=== PATIENT | female | born 1960 | race Caucasian/White ===

== ENCOUNTER → 2019-11-13 09:25 | Outpatient (BNVA) | payer OTHER, SELFPAY | PROVIDERS: Family Provider Nurse Practitioner Family; PCP Nurse Practitioner Family; Visit Provider Nurse Practitioner Family | DX: E11.9 Type 2 diabetes mellitus without complications (principal); R68.89 Other general symptoms and signs | CPT/HCPCS: 80053; 85025; 87804 ==

== ENCOUNTER → 2019-11-15 10:14 | Outpatient (BNVA) | payer OTHER, SELFPAY | PROVIDERS: Family Provider Nurse Practitioner Family; PCP Nurse Practitioner Family; Visit Provider Nurse Practitioner Family | DX: E11.9 Type 2 diabetes mellitus without complications (principal); R74.8 Abnormal levels of other serum enzymes | CPT/HCPCS: 81003; 86705; 86706; 86709; 86803; 87340 ==

== ENCOUNTER → 2020-01-26 11:10 | Outpatient (BNVA) | payer OTHER, SELFPAY | PROVIDERS: Family Provider Nurse Practitioner Family; PCP Nurse Practitioner Family; Visit Provider Nurse Practitioner Family | DX: E11.9 Type 2 diabetes mellitus without complications (principal) | CPT/HCPCS: 80053; 80061; 83036 ==

== ENCOUNTER 2020-03-11 09:11 | Emergency (ER) | payer OTHER, SELFPAY ==
[2020-03-11 09:14] VITALS: BP 218/115; PULSE 99; RESP 16; TEMP 36.6; O2SAT 98; BMI 42.0
--- NOTE | 2020-03-11 09:16 | ED_ITS ---
HPI - General Adult General: Chief complaint: General Medical Stated complaint: ELEVATED BP Time Seen by Provider: 03/11/20 09:15 History of Present Illness: HPI narrative: 59-year-old female comes in with elevated blood pressures. She is on lisinopril and metoprolol she took the metoprolol while at night. She did take lisinopril this morning she denies any visual or speech problems or any swallowing difficulties she does not have a headache she denies any chest pain or shortness of breath just generally does not feel well no recent cough cold symptoms no fever. She states she had a flulike illness in November of this year but recovered from that since then she has had a little persistent cough but is nonproductive. Onset (ago): day(s) Severity: moderate Relieving factors: none Exacerbating factors: none Associated symptoms: Reports no associated symptoms; Deny chest pain, confusion, diaphoresis, decreased appetite, dyspnea, fevers/chills, headache(s), malaise, nausea, rash, palpitations, seizures, short of breath, syncope, vomiting, weakness or other Review of Systems Const: Denies: malaise or diaphoresis ENMT: Denies: throat pain, ear pain, nasal discharge or nasal congestion Card: Denies: chest pain, palpitations or syncope Resp: Denies: shortness of breath GI: Denies: nausea or vomiting : Denies: flank pain, difficulty urinating, painful urination, urinary frequency or urinary urgency Skin/Breast: Denies: rash Neuro: Denies: headache or confusion PFS ED PFSH: Medical History (Updated 03/11/20 @ 11:28 by Ronald Connelly DO) Diabetes mellitus Frenulum linguae Hypertension Nephrolithiasis Surgical History (Updated 03/11/20 @ 11:27 by Ronald Connelly DO) H/O lithotripsy S/P tonsillectomy and adenoidectomy Social History Smoking and tobacco status: never smoked Physical Exam Const: COMMON NORMALS: no apparent distress GENERAL APPEARANCE: cooperative and comfortable ORIENTATION/CONSCIOUSNESS: Yes awake, Yes oriented to person, Yes oriented to place and Yes oriented to time HENMT: COMMON NORMALS: normocephalic, head/scalp atraumatic, hearing grossly normal bilaterally, external ears normal, EAC's normal, TM's normal bilaterally, nasal mucous membranes and turbinates normal, moist oral mucous membranes and oropharynx normal HEAD & SCALP: normocephalic and atraumatic NOSE: nasal mucous membranes and turbinates normal EXTERNAL EAR: Yes external ears normal EXTERNAL AUDITORY CANAL: EAC's normal TYMPANIC MEMBRANE: TM's normal bilaterally Eye: COMMON NORMALS: PERRL, EOMs intact bilaterally, conjunctivae normal and no scleral icterus CONJUNCTIVA: Yes conjunctivae normal PUPIL: Yes PERRL Neck/C-Spine: COMMON NORMALS: full ROM, no lymphadenopathy, supple and no JVD Lymph: LYMPHATIC: no lymphadenopathy noted and no lymphedema noted Resp: COMMON NORMALS: normal respiratory effort, no retractions, no use of accessory muscles and clear to auscultation bilaterally AUSCULTATION: clear to auscultation bilaterally Cardio: COMMON NORMALS: no JVD, regular rate, regular rhythm and no murmurs RATE: regular rate RHYTHM: regular rhythm GI: COMMON NORMALS: soft to palpation and no hepatosplenomegaly AUSCULTATION: Yes normoactive bowel sounds PALPATION: Yes soft, No tender, No guarding and Yes no hepatosplenomegaly Extremity: COMMON NORMALS: normal to inspection, normal capillary refill, no clubbing, cyanosis or edema, no calf tenderness and no pedal edema Neuro: SENSORIUM/ORIENTATION: Yes oriented to person, Yes oriented to place and Yes oriented to time Skin: COMMON NORMALS: no rashes or lesions noted GENERAL SKIN EXAM: no rashes or lesions noted Course Vital Signs: Vital signs: Vital Signs Temperature 97.9 F 03/11/20 09:14 Pulse Rate 78 03/11/20 11:55 Respiratory Rate 16 03/11/20 11:55 Blood Pressure 157/108 03/11/20 11:55 Pulse Oximetry 97 03/11/20 11:55 MDM - General Adult MDM Narrative: Medical decision making narrative: Blood pressure improved she has no symptoms at this time no chest pain no shortness of breath. She is not completely back to normal tensive but I discussed that I do not think that would be a goal at this point. We will go ahead and discharge her home increase her lisinopril to 10 mg daily we will also add amlodipine 10 mg daily and encouraged her to take metoprolol succinate 50 mg daily we did give her metoprolol succinate dose here in the emergency room return if has any problems checkup with her primary care doctor within 3 days for review blood pressure Lab Data: Labs: Lab Results 03/11/20 03/11/20 Range/Units 09:25 09:25 WBC 3.9 L (4.0-10.0) 10^3/ uL RBC 4.57 (4.1-5.3) 10^6/u L Hgb 14.1 (11.5-15.3) g/dL Hct 42.5 (37.0-47.0) % MCV 93.0 (81-99) fL MCH 30.9 (28.0-34.0) pg MCHC 33.2 (30.0-36.0) g/dL RDW 12.1 (12.1-15.1) % Plt Count 204 (130-400) 10^3/c mm MPV 10.9 H (7.4-10.4) fL Neut % (Auto) 67.4 % Lymph % (Auto) 23.9 % [place] % (Auto) 6.3 % Eos % (Auto) 1.3 % Baso % (Auto) 0.8 % Neut # (Auto) 2.7 (1.8-7.7) 10^3/u L Lymph # (Auto) 0.9 (0.8-4.8) 10^3/u L [place] # (Auto) 0.3 (0.2-0.9) 10^3/u L Eos # (Auto) 0.1 (0.0-0.8) 10^3/u L Baso # (Auto) 0.0 (0.0-0.1) 10^3/u L Nucleated RBC % (a uto) 0 % Nucleated RBCs # 0.0 /100WBC Sodium 142 (136-145) mmol/L Potassium 4.0 (3.5-5.1) mmol/L Chloride 105 (98-107) mmol/L Carbon Dioxide 24 (22-29) mmol/L Anion Gap 17.0 (5-19) BUN 11 (6-20) mg/dL Creatinine 0.9 (0.5-0.9) mg/dL GFR Calculation 64.5 L (90-130) mL/min Glucose 126 H (65-115) mg/dL Calculated Osmolal ity 292 (285-295) mOsm/k g Calcium 10.0 (8.5-10.5) mg/dL Total Bilirubin 0.4 (0.15-1.2) mg/dL AST 23 (0-32) U/L ALT 24 (0-33) U/L Alkaline Phosphata se 66 (35-105) IU/L Total Protein 7.4 (6.6-8.7) g/dL Albumin 4.4 (3.5-5.2) g/dL Globulin 3.0 (1.3-4.6) g/dL Discharge Plan Discharge Patient Disposition: Home, Self-Care Clinical Impression: Hypertension Condition: Stable Prescriptions: New amlodipine 10 mg tablet 10 mg PO DAILY Qty: 14 RF: 0 Discontinued lisinopril 5 mg Tablet 5 mg PO DAILY RF: 0 No Action lisinopril 5 mg tablet 10 mg PO DAILY Qty: 30 RF: 0 metoprolol succinate 50 mg Tablet Extended Release 24 Hr 50 mg PO DAILY RF: 0 Pristiq 100 mg Tablet Extended Release 24 Hr 100 mg PO DAILY RF: 0 Ozempic 0.25 mg or 0.5 mg(2 mg/1.5 mL) Pen Injector 0.25 mg SUBCUT Q7D RF: 0 Discharge Orders: Discharge Order (Routine); Ordered 03/11/20 Ordered By: Ronald Connelly Referrals: Esthela Gleason FNP-C [Primary Care Provider] - Discharge Diet: Advance as tolerated Discharge Activity: Resume usual activity Activity Restrictions/Additional Instructions: Follow-up to recheck your blood pressure with your primary care doctor in the next 3 days Discharge Date/Time: 03/11/20 11:57 Coding Level of Care Code 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
--- NOTE | 2020-03-11 09:29 | ECG_ITS ---
Measurements Intervals [place] Rate: 72 P: 49 HI: 179 QRS: -32 QRSD: 86 T: 27 QT: 370 QTc: 407 SINUS RHYTHM POSSIBLE LEFT ATRIAL ENLARGEMENT [-0.1mV P WAVE IN V1/V2] LEFT AXIS DEVIATION [QRS AXIS < -30] LOW QRS VOLTAGE IN PRECORDIAL LEADS [QRS DEFLECTION < 1.0 mV IN CHEST LEADS] POSSIBLE LEFT VENTRICULAR HYPERTROPHY [VOLTAGE CRITERIA PLUS LAE OR QRS WIDENING] POSSIBLE ANTERIOR MYOCARDIAL INFARCTION , PROBABLY OLD [30 ms Q WAVE IN V3/V4, OR R < 0.2 mV IN V4] Compared to ECG 02/09/2019 11:44:13 Left-axis deviation now present Low QRS voltage now present Myocardial infarct finding now present Electronically Signed On 03-11-2020 18:45:00 CDT by Antonio Blevins M.D. [id number]
--- NOTE | 2020-03-11 09:29 | XR_ITS ---
WS: [id number] PORTABLE CHEST HISTORY: dyspnea/cough COMPARISON: 01/26/2018 Lungs are clear and well expanded. No pleural effusion or pneumothorax. Cardiac size: Normal. Mediastinum/Aorta: Normal mediastinum. No osseous abnormality seen. XR/XR chest 1V portable [id number] IMPRESSION: Unremarkable portable chest.
[2020-03-11 10:08] VITALS: BP 173/110; PULSE 87; RESP 16; O2SAT 98
[2020-03-11 10:09] LABS: Basophils % 0.8 %; Eosinophils # 0.1 10^3/uL (0.0-0.8); Eosinophils % 1.3 %; Hematocrit 42.5 % (37.0-47.0); Hemoglobin 14.1 g/dL (11.5-15.3); Lymphocytes # 0.9 10^3/uL (0.8-4.8); Lymphocytes % 23.9 %; Mean Corpuscular HGB Conc 33.2 g/dL (30.0-36.0); Mean Corpuscular Hemoglobin 30.9 pg (28.0-34.0); Mean Platelet Volume 10.9 fL (7.4-10.4); Monocytes # 0.3 10^3/uL (0.2-0.9); Monocytes % 6.3 %; Neutrophils # 2.7 10^3/uL (1.8-7.7); Neutrophils % 67.4 %; Nucleated Red Blood Cells % 0 %; Platelet Count 204 10^3/cmm (130-400); Red Blood Count 4.57 10^6/uL (4.1-5.3); Red Cell Distribution Width 12.1 % (12.1-15.1); White Blood Count 3.9 10^3/uL (4.0-10.0)
[2020-03-11 10:12] VITALS: BP 176/105; PULSE 93; RESP 16; O2SAT 98
[2020-03-11] MEDS: amlodipine 10 mg Tablet PO (10:13)
[2020-03-11] MEDS: metoprolol tartrate 1 mg/1 mL SDV 5 mL 5 MG IV (10:13)
[2020-03-11] MEDS: metoprolol succinate ER (24 HR) 50 mg Tablet PO (10:13)
[2020-03-11 10:15] VITALS: BP 178/106; PULSE 87; RESP 16; O2SAT 99
[2020-03-11 10:22] LABS: Alanine Aminotransferase 24 U/L (0-33); Albumin Level 4.4 g/dL (3.5-5.2); Alkaline Phosphatase 66 IU/L (35-105); Aspartate Amino Transferase 23 U/L (0-32); Blood Urea Nitrogen 11 mg/dL (6-20); Carbon Dioxide 24 mmol/L (22-29); Chloride 105 mmol/L (98-107); Glomerular Filtration Rate 64.5 mL/min (90-130); Glucose 126 mg/dL (65-115); Osmolality Calculated 292 mOsm/kg (285-295); Sodium 142 mmol/L (136-145); Total Bilirubin 0.4 mg/dL (0.15-1.2); Total Protein 7.4 g/dL (6.6-8.7)
[2020-03-11 10:29] VITALS: BP 165/106; PULSE 70; RESP 16; O2SAT 95
[2020-03-11] MEDS: hyDRALAzine 20 mg/mL INJ 1 mL 10 MG IVP (11:38)
[2020-03-11 11:55] VITALS: BP 157/108; PULSE 78; RESP 16; O2SAT 97
--- NOTE | 2020-03-11 12:24 | PC.NURSE ---
Verbal order by Dr. Connelly to [facility]. Lisinopril 10mg PO daily. #20.
== END 2020-03-11 11:57 | disposition home or self-care (01) ==
PROVIDERS: Emergency Provider Family Medicine; PCP Nurse Practitioner Family
DX: I10 Essential (primary) hypertension (principal); E11.9 Type 2 diabetes mellitus without complications
CPT/HCPCS: 12345; 71045; 80053; 85025; 93005; 96374; 96375; 99282; 99283; J0360; J3490

== ENCOUNTER 2020-03-11 13:38 | Emergency (ER) | payer OTHER, SELFPAY ==
[2020-03-11 13:50] VITALS: BP 166/99; PULSE 108; RESP 17; TEMP 36.9; O2SAT 99; BMI 41.8
== END 2020-03-11 15:37 | disposition left against medical advice (07) ==
LOC: ER 15:11
PROVIDERS: Emergency Provider Physician Assistant; PCP Nurse Practitioner Family
DX: Z53.21 Procedure and treatment not carried out due to patient leaving prior to being seen by health care provider (principal)
CPT/HCPCS: 99281

== ENCOUNTER → 2020-04-04 08:53 | Outpatient (BNVA) | payer OTHER, SELFPAY | PROVIDERS: PCP Nurse Practitioner Family; Visit Provider Nurse Practitioner Family | DX: E11.65 Type 2 diabetes mellitus with hyperglycemia (principal); I10 Essential (primary) hypertension; N18.9 Chronic kidney disease, unspecified; R53.83 Other fatigue; E78.2 Mixed hyperlipidemia; W57.XXXA Bitten or stung by nonvenomous insect and other nonvenomous arthropods, initial encounter | CPT/HCPCS: 80053; 80061; 83036; 84443; 85025; 86000; 86617; 86757 ==

== ENCOUNTER 2020-04-15 08:16 | Outpatient (CLI) | payer OTHER, SELFPAY ==
--- NOTE | 2020-04-15 08:15 | XR_ITS ---
WS: [id number] XR KUB [id number] REASON FOR EXAM: Stones FINDINGS: Calcified densities seen along the superior aspects the left kidney. This is nonobstructing . Neither kidney is dilated. The soft tissue around the vertebra as was normal with no stones and no stones are seen in the pelvis . XR/XR KUB [id number] IMPRESSION: Small stone superior pole of the left kidney nonobstructing
== END 2020-04-15 08:17 | disposition home or self-care (01) ==
LOC: RAD 08:21
PROVIDERS: PCP Nurse Practitioner Family; Visit Provider Urology
DX: N20.0 Calculus of kidney (principal)
CPT/HCPCS: 74018; 81001

== ENCOUNTER → 2020-07-10 09:24 | Outpatient (BNVA) | payer OTHER, SELFPAY | PROVIDERS: PCP Nurse Practitioner Family; Visit Provider Nurse Practitioner Family | DX: R10.9 Unspecified abdominal pain (principal) | CPT/HCPCS: 74018; 81000 ==

== ENCOUNTER → 2020-08-15 15:58 | Outpatient (BNVA) | payer OTHER, SELFPAY | PROVIDERS: PCP Nurse Practitioner Family; Visit Provider Nurse Practitioner Family | DX: E11.65 Type 2 diabetes mellitus with hyperglycemia (principal) | CPT/HCPCS: 80053; 80061; 83036; 84443; 85025 ==

== ENCOUNTER → 2020-09-09 09:43 | Outpatient (BNVA) | payer OTHER, SELFPAY | PROVIDERS: PCP Nurse Practitioner Family; Visit Provider Family Medicine | DX: Z11.59 Encounter for screening for other viral diseases (principal); Z20.828 Contact with and (suspected) exposure to other viral communicable diseases | CPT/HCPCS: 87635 ==

== ENCOUNTER → 2020-10-08 13:53 | Outpatient (BNVA) | payer OTHER, SELFPAY | PROVIDERS: PCP Nurse Practitioner Family; Visit Provider Nurse Practitioner Family | DX: R30.0 Dysuria (principal) | CPT/HCPCS: 81000 ==

== ENCOUNTER → 2020-11-29 11:36 | Outpatient (BNVA) | payer OTHER, SELFPAY | PROVIDERS: PCP Nurse Practitioner Family; Visit Provider Nurse Practitioner Family | DX: E11.29 Type 2 diabetes mellitus with other diabetic kidney complication (principal); R42 Dizziness and giddiness | CPT/HCPCS: 80053; 84484; 85025 ==

== ENCOUNTER → 2021-02-21 11:06 | Outpatient (BNVA) | payer OTHER, SELFPAY | PROVIDERS: PCP Nurse Practitioner Family; Visit Provider Nurse Practitioner Family | DX: E11.65 Type 2 diabetes mellitus with hyperglycemia (principal); I10 Essential (primary) hypertension | CPT/HCPCS: 80053; 80061; 83036; 84443; 85025 ==

== ENCOUNTER → 2021-06-02 16:45 | Outpatient (BNVA) | payer OTHER, SELFPAY | PROVIDERS: PCP Nurse Practitioner Family; Visit Provider Nurse Practitioner | DX: L98.9 Disorder of the skin and subcutaneous tissue, unspecified (principal) | CPT/HCPCS: 88305 ==

== ENCOUNTER 2021-06-06 08:11 | Outpatient (CLI) | payer OTHER, SELFPAY ==
[2021-06-06 08:33] VITALS: BMI 41.4
--- NOTE | 2021-06-06 08:34 | ECG_ITS ---
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 Interpretive Statements NAME OF STUDY: LEXISCAN SESTAMIBI STRESS TEST INDICATION: [Shortness of Breath, ] Procedure: At the baseline, the blood pressure was 131/84 mmHg with a heart rate of 69 bpm. The electrocardiogram showed normal sinus rhythm, left axis deviation with normal ST and T's. The Lexiscan was infused over a period of 20 seconds. A total of 0.4 mg of Lexiscan was infused. The stress phase was continued for a total of 5 minutes. Heart rate was at the end of stress phase was 89 bpm and a blood pressure of 127/79 mmHg. The EKG at the peak infusion revealed since normal sinus rhythm with no significant ST-T wave changes. Sestamibi was injected 20 seconds after the Lexiscan infusion. Blood pressure at the end of recovery phase was 130/81 mmHg with a heart rate of 81 bpm. Conclusion: 1. Normal EKG response to Lexiscan infusion 2. No Lexiscan induced chest pain or cardiac arrhythmia. 3. Normal blood pressure and heart rate response. 4. Sestamibi/sestamibi perfusion scan pending; see separate report. Electronically Signed On 07-13-2021 12:35:12 CDT by Jeff Ruffin M.D. [id number]
--- NOTE | 2021-06-06 08:35 | NMCV_ITS ---
NM abbie perf SPECT r/s* [id number] Devora Olivares Age: 61 Gender: F : 1960 Exam Date: 06/06/2021 09:22 Ordering Phys: Jeff Ruffin M.D ([email or web address]) Technologist: DUC Lynch Exam Location: [facility] Indications: SHORTNESS OF BREATH STRESS TEST [facility] IMAGE PROTOCOL Rest/Stress 1 Lexiscan Day Radiopharmaceutical Dose (mCi) Administration Site Administered by Rest: Tc-99m 10.9 IV DUC Lynch Sestamibi Stress:Tc-99m 32.2 IV DUC Rodriguez Sestamibi Rest: 06/06/2021 60 Discovery 630 Stress: 06/06/2021 30 Discovery 630 0.4mg Lexiscan. Images obtained in supine and prone position. SPECT RESULTS Technical Quality: Excellent Raw Data Analysis: Normal Image Corrections: No attenuation or motion correction applied Summed Stress Score: 5 Summed Rest Score: 1 Summed Difference Score: 4 PERFUSION FINDINGS There is a small in size mostly fixed perfusion defect of the apical lateral and mid lateral luis. This likely represents prior infarct in the LCx territory with mild narinder-infarct ischemia FUNCTIONAL RESULTS (calculated via Gated SPECT) Stress Image LV EF (%): 88 Stress EDV (mL):68 TID: 0.86 Stress ESV (mL):8 FUNCTIONAL FINDINGS: There is normal left ventricular systolic function. IMPRESSIONS 1. 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 LV systolic function is normal Jeff Ruffin MD (Electronically Signed) Final Date: 07 June 2021 21:47 S
[2021-06-06] MEDS: regadenoson 0.4 Mg/5 ml Syringe IVP (10:05)
[2021-06-06 10:20] VITALS: BP 130/81; PULSE 84
== END 2021-06-06 08:12 | disposition home or self-care (01) ==
LOC: CDL 08:12
PROVIDERS: PCP Nurse Practitioner Family; Visit Provider Internal Medicine
DX: R06.02 Shortness of breath (principal)
CPT/HCPCS: 78452; 93017; A9500; J2785

== ENCOUNTER → 2021-06-19 08:47 | Outpatient (BNVA) | payer OTHER, SELFPAY | PROVIDERS: PCP Nurse Practitioner Family; Visit Provider Nurse Practitioner Family | DX: E11.29 Type 2 diabetes mellitus with other diabetic kidney complication (principal); E78.2 Mixed hyperlipidemia | CPT/HCPCS: 80053; 80061; 83036; 84443 ==

== ENCOUNTER → 2021-10-27 13:47 | Outpatient (BNVA) | payer OTHER, SELFPAY | PROVIDERS: PCP Nurse Practitioner Family; Visit Provider Nurse Practitioner Family | DX: E11.29 Type 2 diabetes mellitus with other diabetic kidney complication (principal) | CPT/HCPCS: 83036 ==

== ENCOUNTER → 2022-01-22 14:07 | Outpatient (BNVA) | payer OTHER, SELFPAY | PROVIDERS: PCP Nurse Practitioner Family; Visit Provider Nurse Practitioner Family | DX: R06.00 Dyspnea, unspecified (principal); E11.65 Type 2 diabetes mellitus with hyperglycemia; E78.2 Mixed hyperlipidemia; R53.83 Other fatigue; Z86.16 Personal history of COVID-19; I47.1 Supraventricular tachycardia; F41.8 Other specified anxiety disorders; I10 Essential (primary) hypertension; K59.00 Constipation, unspecified | CPT/HCPCS: 71046; 80053; 80061; 82306; 82607; 83036; 85025 ==

== ENCOUNTER → 2022-05-21 11:23 | Outpatient (BNVA) | payer OTHER, SELFPAY | PROVIDERS: PCP Nurse Practitioner Family; Visit Provider Nurse Practitioner | DX: R42 Dizziness and giddiness (principal); E11.65 Type 2 diabetes mellitus with hyperglycemia | CPT/HCPCS: 80048; 82962 ==

== ENCOUNTER → 2022-07-22 13:38 | Outpatient (BNVA) | payer OTHER, SELFPAY | PROVIDERS: PCP Nurse Practitioner Family; Visit Provider Nurse Practitioner | DX: M54.2 Cervicalgia (principal); M54.9 Dorsalgia, unspecified; M79.7 Fibromyalgia; M48.56XD Collapsed vertebra, not elsewhere classified, lumbar region, subsequent encounter for fracture with routine healing; M47.816 Spondylosis without myelopathy or radiculopathy, lumbar region; M47.814 Spondylosis without myelopathy or radiculopathy, thoracic region | CPT/HCPCS: 72072; 72100; 73000 ==

== ENCOUNTER → 2023-01-28 15:52 | Outpatient (BNVA) | payer OTHER, SELFPAY | PROVIDERS: PCP Nurse Practitioner Family; Visit Provider Nurse Practitioner Family | DX: R39.9 Unspecified symptoms and signs involving the genitourinary system (principal) | CPT/HCPCS: 81000 ==

== ENCOUNTER → 2023-03-04 08:43 | Outpatient (BNVA) | payer OTHER, SELFPAY | PROVIDERS: PCP Nurse Practitioner Family; Visit Provider Nurse Practitioner Family | DX: E11.65 Type 2 diabetes mellitus with hyperglycemia (principal); R53.83 Other fatigue | CPT/HCPCS: 80053; 80061; 82306; 83036; 84443; 85025 ==

== ENCOUNTER → 2023-05-26 16:02 | Outpatient (BNVA) | payer OTHER, SELFPAY | PROVIDERS: PCP Nurse Practitioner Family; Visit Provider Emergency Medicine | DX: R30.0 Dysuria (principal); R31.9 Hematuria, unspecified | CPT/HCPCS: 81000; 87086 ==

== ENCOUNTER 2023-07-06 18:48 | Emergency (ER) | payer OTHER, SELFPAY ==
[2023-07-06 18:54] VITALS: BP 138/89; PULSE 121; RESP 18; TEMP 36.8; O2SAT 96; BMI 41.4
--- NOTE | 2023-07-06 19:03 | W.ED.SKABFB ---
HPI - Skin/Abscess/Foreign Bdy General: Chief complaint: Skin/Abscess/Foreign Body Stated complaint: bee stings Time Seen by Provider: 07/06/23 19:02 History of Present Illness: 63-year-old female was mowing her lawn when she ran over a wasp nest causing the yellow and black wasp to sting her multiple times to her hand forearm and back. Patient denies any severe allergies but come in due to some swelling in the hands and pain. Patient reports some improvement of symptoms since arriving in the ER. Patient did take diphenhydramine after the incident. Injuries occurred around 6:00 this evening. Patient does have a history of diabetes. Associated symptoms: Deny fever(s) Review of Systems General: Reports: 10 or more systems reviewed and unremarkable except in HPI and below Const: Denies: fever(s) Card: Denies: chest pain Resp: Denies: dyspnea Skin/Breast: Reports: new lesions PFSH ED PFSH: Medical History Anxiety and depression Chronic kidney disease (CKD) Controlled type 2 diabetes mellitus with hyperglycemia, without long-term current use of insulin Depression with anxiety DM (diabetes mellitus) type II controlled with renal manifestation Fibromyalgia Frenulum linguae Hypertension Mixed hyperlipidemia Nephrolithiasis Obesity SVT (supraventricular tachycardia) Surgical History H/O lithotripsy History of bladder surgery History of dilation and curettage S/P tonsillectomy and adenoidectomy Family History Other Heart disease Hyperthyroidism Liver disease TIA (transient ischemic attack) Social History Smoking and tobacco status: never smoked Second hand smoke exposure: No Smoking risk assessment/counseling performed?: No Alcohol intake: never Desire information about alcohol rehabilitation?: No Counseling given: No Substance/Drug Use: never Desire information about substance/drug rehabilitation?: No Counseling given: No Adopted: No Caregiver/support person: No Lives independently: Yes Household members: none Housing: House Marital status: service: No Current occupational status: employed Current occupation: [employer] Pets and animals: Yes Pets & animals: cat(s) Do you think of yourself as: Straight/Heterosexual Current gender identity: Female Physical Exam Const: COMMON NORMALS: alert HENMT: COMMON NORMALS: normocephalic HEAD & SCALP: normocephalic Neck/C-Spine: COMMON NORMALS: full ROM Resp: COMMON NORMALS: normal respiratory effort and clear to auscultation bilaterally AUSCULTATION: clear to auscultation bilaterally Cardio: COMMON NORMALS: regular rate RATE: regular rate GI: COMMON NORMALS: Soft to palpation PALPATION: Yes Soft to palpation Back/Pelvis: COMMON NORMALS: thoracic and lumbar spine normal to inspection Extremity: COMMON NORMALS: normal to inspection NARRATIVE EXTREMITY EXAM: Mild swelling of the fingers at the site of insect stings Neuro: SENSORIUM/ORIENTATION: Yes alert Skin: NARRATIVE SKIN EXAM: Multiple erythematous macules at area of insect stings. Course Vital Signs: Vital signs: Vital Signs Temperature 98.2 F 07/06/23 18:54 Pulse Rate 121 H 07/06/23 18:54 Respiratory Rate 18 07/06/23 18:54 Blood Pressure 138/89 07/06/23 18:54 Pulse Oximetry 96 07/06/23 18:54 Oxygen Delivery Me thod Room Air 07/06/23 18:54 MDM - Skin/Abscess/Foreign Bdy Medicial Decision Making Patient comes in today for multiple insect stings. On exam patient has multiple sting bites with minimal swelling and redness. No acute distress is noted. Lungs are clear to auscultation. Vital signs are normal except for some mild elevation in pulse. Differential diagnosis includes allergic reaction, local reaction to insect bite, anaphylaxis. No signs of serious illness or injury is noted. Patient was given 1 dose of dexamethasone to help with swelling and inflammation, and 1 dose of ketorolac 30 mg. Patient was recommended to continue with antihistamine and Tylenol and/or ibuprofen for pain and discomfort. Patient reported understanding and agreed to plan. Discharge Plan Discharge Patient Disposition: Home Clinical Impression: Sting, insect Qualifiers: Encounter type: initial encounter Injury intent: accidental or unintentional Qualified Code(s): T63.481A - Toxic effect of venom of other arthropod, accidental (unintentional), initial encounter Condition: Stable Prescriptions: No Action famotidine 40 mg tablet 40 mg PO DAILY PRN ibuprofen 200 mg tablet 200 mg PO Q6H PRN naproxen 250 mg tablet 250 mg PO BID PRN meclizine 25 mg tablet 25 mg PO BID PRN (Reason: dizziness) Qty: 30 0RF cefdinir 300 mg capsule 300 mg PO Q12H 10 Days Qty: 20 0RF fluconazole [Diflucan] 150 mg tablet 150 mg PO Q3D Qty: 2 1RF metoprolol succinate 50 mg tablet extended release 24 hr 50 mg PO DAILY Qty: 90 3RF Rx Instructions: (PT STATES SHE TAKES REGULARLY) Jardiance 10 mg tablet 10 mg PO DAILY 90 Days Qty: 30 3RF amitriptyline 10 mg tablet 5 mg PO DAILY PRN (Reason: anxiety, sleep) 30 Days Qty: 30 3RF amlodipine 10 mg tablet 10 mg PO DAILY Qty: 30 0RF Rx Instructions: MUST have follow-up for further refills cholecalciferol (vitamin D3) 1,250 mcg (50,000 unit) capsule 50,000 unit PO .weekly Qty: 4 2RF cyclobenzaprine 10 mg tablet 10 mg PO .hs PRN (Reason: muscle spasm) 30 Days Qty: 30 2RF duloxetine 30 mg capsule,delayed release(DR/EC) See Rx Instructions PO BID Qty: 270 1RF Rx Instructions: 2 am, 1 pm lisinopril 40 mg tablet 40 mg PO DAILY Qty: 90 3RF Discharge Orders: Discharge ED (Routine); Ordered 07/06/23 Ordered By: Ad Goncalves Referrals: Esthela Gleason FNP-C [Primary Care Provider] - Discharge Diet: Usual diet Discharge Activity: Increase activity as tolerated Patient Instructions: Insect Bite or Sting (ED) Activity Restrictions/Additional Instructions: Home and rest. Continue with acetaminophen and/or ibuprofen as needed for pain. Use Claritin, or Zyrtec, 1 or 2 tabs 2 times a day as needed for itching or rash. Drink plenty of water with medications follow-up with primary care as needed. Return to ED for worsening symptoms such as severe chest pain, shortness of breath, or new concerns. Coding Level of Care Code ED Interior Design Professor for Donnell Harris
[2023-07-06] MEDS: ketorolac 30 mg/mL INJ IM (19:24)
--- NOTE | 2023-07-06 19:26 | PC.NURSE ---
double orders were placed for ketorolac and decadron, pharmacy cancelled double orders while decadron was being administered, LAMIN Goncalves okayed administration of decadron. pharmacy was notified.
[2023-07-06 19:34] VITALS: BP 127/85; RESP 17
[2023-07-06 19:53] VITALS: BP 140/95; RESP 18
== END 2023-07-06 19:55 | disposition home or self-care (01) ==
PROVIDERS: Emergency Provider Nurse Practitioner Family; PCP Nurse Practitioner Family
DX: T63.461A Toxic effect of venom of wasps, accidental (unintentional), initial encounter (principal); E11.22 Type 2 diabetes mellitus with diabetic chronic kidney disease; I12.9 Hypertensive chronic kidney disease with stage 1 through stage 4 chronic kidney disease, or unspecified chronic kidney disease; N18.9 Chronic kidney disease, unspecified; E78.2 Mixed hyperlipidemia
CPT/HCPCS: 96372; 99284; J1100; J1885

== ENCOUNTER → 2024-05-30 10:00 | Outpatient (BNVA) | payer OTHER, SELFPAY | PROVIDERS: PCP Nurse Practitioner Family; Visit Provider Nurse Practitioner Family | DX: R39.9 Unspecified symptoms and signs involving the genitourinary system (principal) | CPT/HCPCS: 81000 ==

== ENCOUNTER 2024-06-02 06:00 | Outpatient (CLI) | payer OTHER, SELFPAY | END 2024-06-02 06:01 | disposition home or self-care (01) | PROVIDERS: PCP Nurse Practitioner Family; Visit Provider Nurse Practitioner Family | DX: E11.29 Type 2 diabetes mellitus with other diabetic kidney complication (principal); E11.65 Type 2 diabetes mellitus with hyperglycemia | CPT/HCPCS: 80053; 80061; 83036; 85025 ==

== ENCOUNTER → 2024-09-18 15:27 | Outpatient (BNVA) | payer OTHER, SELFPAY | PROVIDERS: PCP Nurse Practitioner Family; Visit Provider Nurse Practitioner | DX: I47.10 Supraventricular tachycardia, unspecified (principal) | CPT/HCPCS: 84443 ==

== ENCOUNTER 2024-10-11 12:48 | Outpatient (RCR) | payer OTHER, SELFPAY | END 2024-10-31 23:59 | disposition home or self-care (01) | LOC: SPT 12:48 | PROVIDERS: PCP Nurse Practitioner; Visit Provider Nurse Practitioner Family | DX: M54.9 Dorsalgia, unspecified (principal); G89.29 Other chronic pain | CPT/HCPCS: 97110; 97161 ==

== ENCOUNTER 2024-10-13 13:17 | Emergency (ER) | payer OTHER, SELFPAY ==
--- NOTE | 2024-10-13 13:22 | USCV_ITS ---
Devora Olivares Age: 64 Gender: F : 1960 Exam Date: 10/13/2024 14:37 Ordering Phys: Branden Pineda MD Technologist: Juanito Martinez [place] [facility] [place] Indication: swelling PROCEDURES: Venous duplex imaging was performed in only the right lower extremity. The following venous structures were evaluated: common femoral vein, profunda vein, proximal portion of the greater saphenous vein, superficial femoral vein, and the popliteal vein. In addition, the posterior tibial and peroneal trunk were evaluated. Serial compression, augmentation maneuvers, and spectral Doppler flow evaluation were performed. FINDINGS: Normal 2-D Doppler and augmentation and compressibility throughout the lower extremity venous structures. Additional imaging through the proximal calf veins also reveals no thrombus. Limited evaluation of the greater saphenous vein is patent with no thrombus. CONCLUSIONS No DVT right lower extremity. Dr. Judit Ball DO (Electronically Signed) Final Date: 16 October 2024 09:33 S
[2024-10-13 14:30] VITALS: BP 173/126; PULSE 84; RESP 18; TEMP 36.4; O2SAT 98; BMI 38.0
--- NOTE | 2024-10-13 17:22 | W.ED.EXTPRO ---
HPI - Extremity Problem General: Chief complaint: Extremity Problem,Nontraumatic Stated complaint: rt leg swollen Time Seen by Provider: 10/13/24 17:17 Source: patient Mode of arrival: ambulatory Limitations: no limitations History of Present Illness: Patient is a nice 64-year-old female presents to ED today after being sent here by Dr. Leo for evaluation of right lower leg swelling and pain and concern for DVT. Patient denies any redness or warmth to the leg. She has not had any injury or trauma. No recent surgeries or periods of prolonged inactivity. No history of DVT/PE. She is not having any numbness, tingling, loss of sensation to the leg. She is ambulatory here without difficulty or assistance. Patient states she always has some degree of bilateral leg swelling but feels like it is worse on the right now. Denies chest pain, shortness of breath, difficulty breathing. MD Complaint: extremity pain and extremity swelling Onset (ago): day(s) Pain Consistency: constant Location: right and lower extremity Radiation: none Exacerbating factors: nothing Associated symptoms: Reports no associated symptoms; Deny chest pain or fever(s) Related Data Home Medications Medication Instructions Recorded Confirmed famotidine 40 mg tablet 40 mg PO DAILY PRN 10/28/21 10/13/24 ibuprofen 200 mg tablet 200 mg PO Q6H PRN 10/28/21 10/13/24 amitriptyline 10 mg tablet 2.5 mg PO DAILY PRN anxiety, sleep 09/18/24 10/13/24 cholecalciferol (vitamin D3) 125 500 mcg PO DAILY 09/18/24 10/13/24 mcg (5,000 unit) capsule duloxetine 30 mg capsule,delayed 30 mg PO BID 09/18/24 10/13/24 release Previous Rx's Medication Instructions Recorded lisinopril 40 mg tablet 40 mg PO DAILY #90 tabs 10/11/23 amlodipine 10 mg tablet 10 mg PO DAILY #90 tabs 03/29/24 glipizide 5 mg tablet 5 mg PO DAILY #90 tabs 06/02/24 hydrochlorothiazide 25 mg tablet 25 mg PO DAILY PRN swelling, SOB 06/02/24 #30 tabs hydroxyzine pamoate 25 mg capsule 25 mg PO .HS PRN itching #30 caps 07/24/24 eszopiclone 1 mg tablet (Lunesta) 1 mg PO .for sleep #10 tabs 09/18/24 metoprolol succinate 50 mg See Rx Instructions .Route 09/21/24 tablet,extended release 24 hr .COMPLEX #90 tabs amoxicillin 875 mg-potassium 1 tab PO BID 10 days #20 tabs 10/13/24 clavulanate 125 mg tablet Allergies Allergy/AdvReac Type Severity Reaction Status Date / Time erythromycin base Allergy Severe ALGY-Anaphy Verified 10/13/24 14:33 laxis hydralazine Allergy Severe ALGY-Difficulty Verified 10/13/24 14:33 Breathing Sulfa (Sulfonamide Allergy Unknown Unknown Verified 10/13/24 14:33 Antibiotics) hydrocodone Allergy ALGY-Difficulty Verified 10/13/24 14:33 Breathing levofloxacin [From Levaquin] Allergy ADR-Nausea Verified 10/13/24 14:33 Review of Systems Const: Denies: fever(s) Card: Denies: chest pain Resp: Denies: dyspnea or hemoptysis Musc: Reports: extremity pain and extremity swelling; Denies: joint pain, joint swelling, joint redness, joint warmth or limited range of motion Neuro: Denies: numbness in extremities, weakness in extremities, sensory changes or difficulty walking PFSH ED PFSH: Medical History Insomnia Anxiety and depression Obesity Chronic kidney disease (CKD) Depression with anxiety SVT (supraventricular tachycardia) Controlled type 2 diabetes mellitus with hyperglycemia, without long-term current use of insulin Mixed hyperlipidemia DM (diabetes mellitus) type II controlled with renal manifestation Fibromyalgia Frenulum linguae Nephrolithiasis Hypertension Surgical History History of bladder surgery History of dilation and curettage S/P tonsillectomy and adenoidectomy H/O lithotripsy Family History Other Heart disease Hyperthyroidism Liver disease TIA (transient ischemic attack) Social History Smoking and tobacco/nicotine status: unknown if used tobacco/nicotine Second hand smoke exposure: No Alcohol intake: never Substance/Drug Use: never Adopted: No Caregiver/support person: No Lives independently: Yes Household members: none Housing: House Marital status: service: No Current occupational status: employed Current occupation: [employer] Pets and animals: Yes Pets & animals: cat(s) Do you think of yourself as: Straight/Heterosexual Current gender identity: Female Physical Exam Const: COMMON NORMALS: no acute distress, patient oriented x3, no limitations, alert and well nourished GENERAL APPEARANCE: cooperative Resp: COMMON NORMALS: normal respiratory effort and clear to auscultation bilaterally AUSCULTATION: clear to auscultation bilaterally Cardio: COMMON NORMALS: regular rate and regular rhythm RATE: regular rate RHYTHM: regular rhythm Extremity: COMMON NORMALS: normal to inspection, full ROM and capillary refill normal NARRATIVE EXTREMITY EXAM: mild bilateral nonpitting edema; R lower extremity slightly more swollen than L; no erythema/warmth; no palpable cords; extremities neurovascularly intact GENERAL: Yes normal exam except as noted Neuro: COMMON NORMALS: patient oriented x3, moves all extremities, no focal motor deficits, no sensory deficits noted and gait normal SENSORIUM/ORIENTATION: Yes alert Course Vital Signs: Vital signs: Vital Signs Temperature 97.5 F L 10/13/24 14:30 Pulse Rate 84 10/13/24 14:30 Respiratory Rate 18 10/13/24 14:30 Blood Pressure 173/126 10/13/24 14:30 Pulse Oximetry 98 10/13/24 14:30 Oxygen Delivery Me thod Room Air 10/13/24 14:30 MDM - Extremity (Nontraumatic) Medical Decision Making US per noah/David, no DVT. Patient to be allowed discharge to follow-up with primary care next week. XR interpretation done by ED provider, pending radiology final review (neg for DVT per US tech) Discharge Plan Discharge Patient Disposition: Home Clinical Impression: Right leg swelling Condition: Stable Prescriptions: No Action famotidine 40 mg tablet 40 mg PO DAILY PRN ibuprofen 200 mg tablet 200 mg PO Q6H PRN lisinopril 40 mg tablet 40 mg PO DAILY Qty: 90 3RF glipizide 5 mg tablet 5 mg PO DAILY Qty: 90 1RF hydrochlorothiazide 25 mg tablet 25 mg PO DAILY PRN (Reason: swelling, SOB) Qty: 30 2RF amitriptyline 10 mg tablet 2.5 mg PO DAILY PRN (Reason: anxiety, sleep) Hold Instructions: Try Lunesta and watch heart rate cholecalciferol (vitamin D3) 125 mcg (5,000 unit) capsule 500 mcg PO DAILY duloxetine 30 mg capsule,delayed release(DR/EC) 30 mg PO BID eszopiclone [Lunesta] 1 mg tablet 1 mg PO .for sleep Qty: 10 0RF amoxicillin-pot clavulanate 875-125 mg tablet 1 tab PO BID 10 Days Qty: 20 0RF amlodipine 10 mg tablet 10 mg PO DAILY Qty: 90 3RF hydroxyzine pamoate 25 mg capsule 25 mg PO .HS PRN (Reason: itching) Qty: 30 0RF Hold Instructions: Try Lunesta and watch heart rate metoprolol succinate 50 mg tablet extended release 24 hr See Rx Instructions .ROUTE .COMPLEX Qty: 90 3RF Dose Instruction: TAKE 1 TABLET BY MOUTH EVERY DAY Rx Instructions: TAKE 1 TABLET BY MOUTH EVERY DAY Discharge Orders: Discharge ED (Routine); Ordered 10/13/24 Ordered By: Carole Francisco Referrals: Cristhian Bear, [employer] [Primary Care Provider] - Activity Restrictions/Additional Instructions: As we discussed, your ultrasound was negative for DVT. Please follow-up with primary care for further evaluation if symptoms do not begin to improve. Coding Level of Care Code ED Director [facility]
[2024-10-13 17:30] VITALS: BP 122/73; PULSE 59; O2SAT 96
[2024-10-13 17:40] VITALS: BP 122/73; PULSE 59; O2SAT 96
== END 2024-10-13 17:40 | disposition home or self-care (01) ==
PROVIDERS: Emergency Provider Physician Assistant; PCP Nurse Practitioner
DX: M79.89 Other specified soft tissue disorders (principal); E11.65 Type 2 diabetes mellitus with hyperglycemia; E78.2 Mixed hyperlipidemia; I10 Essential (primary) hypertension
CPT/HCPCS: 93971; 99284

== ENCOUNTER 2024-11-01 06:00 | Outpatient (RCR) | payer OTHER, SELFPAY | END 2024-12-01 23:59 | disposition home or self-care (01) | LOC: SPT 06:00 | PROVIDERS: PCP Nurse Practitioner; Visit Provider Nurse Practitioner Family | DX: G89.4 Chronic pain syndrome (principal); M62.81 Muscle weakness (generalized); R29.3 Abnormal posture; R26.89 Other abnormalities of gait and mobility | CPT/HCPCS: 97110 ==

== ENCOUNTER → 2024-12-11 12:16 | Outpatient (BNVA) | payer OTHER, SELFPAY | PROVIDERS: PCP Nurse Practitioner; Visit Provider Nurse Practitioner | DX: E11.9 Type 2 diabetes mellitus without complications (principal); E11.65 Type 2 diabetes mellitus with hyperglycemia | CPT/HCPCS: 80053; 80061; 82043; 83036 ==

== ENCOUNTER 2024-12-13 14:11 | Outpatient (RCR) | payer OTHER, SELFPAY | END 2024-12-29 23:59 | disposition home or self-care (01) | LOC: SPT 14:11 | PROVIDERS: PCP Nurse Practitioner; Visit Provider Nurse Practitioner Family | DX: M54.9 Dorsalgia, unspecified (principal); G89.29 Other chronic pain | CPT/HCPCS: 97110 ==

== ENCOUNTER 2024-12-30 06:00 | Outpatient (RCR) | payer OTHER, SELFPAY | END 2025-01-29 23:59 | disposition home or self-care (01) | LOC: SPT 06:00 | PROVIDERS: PCP Nurse Practitioner; Visit Provider Nurse Practitioner Family | DX: M54.9 Dorsalgia, unspecified (principal); G89.29 Other chronic pain | CPT/HCPCS: 97110 ==

== ENCOUNTER 2025-01-30 06:00 | Outpatient (RCR) | payer OTHER, SELFPAY | END 2025-02-28 23:59 | disposition home or self-care (01) | LOC: SPT 06:00 | PROVIDERS: PCP Nurse Practitioner; Visit Provider Nurse Practitioner Family | DX: M54.9 Dorsalgia, unspecified (principal); G89.29 Other chronic pain | CPT/HCPCS: 97110 ==

== ENCOUNTER 2025-03-01 05:00 | Outpatient (RCR) | payer OTHER, SELFPAY | END 2025-03-27 09:59 | disposition home or self-care (01) | LOC: SPT 05:00 | PROVIDERS: PCP Nurse Practitioner; Visit Provider Nurse Practitioner Family | DX: M54.9 Dorsalgia, unspecified (principal); G89.29 Other chronic pain | CPT/HCPCS: 97110 ==

== ENCOUNTER → 2025-03-30 10:33 | Outpatient (BNVA) | payer OTHER, SELFPAY | PROVIDERS: PCP Nurse Practitioner; Visit Provider Nurse Practitioner | DX: E11.65 Type 2 diabetes mellitus with hyperglycemia (principal); E78.2 Mixed hyperlipidemia; E55.9 Vitamin D deficiency, unspecified | CPT/HCPCS: 80053; 80061; 82306; 82607; 83036 ==

== ENCOUNTER → 2025-05-07 11:20 | Outpatient (BNVA) | payer OTHER, SELFPAY | PROVIDERS: PCP Nurse Practitioner; Visit Provider Clinical Nurse Specialist Adult Health | DX: N39.0 Urinary tract infection, site not specified (principal) | CPT/HCPCS: 81000 ==

== ENCOUNTER 2025-05-09 12:33 | Outpatient (CLI) | payer OTHER, SELFPAY | END 2025-05-09 12:34 | disposition home or self-care (01) | PROVIDERS: PCP Nurse Practitioner; Visit Provider Clinical Nurse Specialist Adult Health | DX: N39.0 Urinary tract infection, site not specified (principal) | CPT/HCPCS: 87086 ==

== ENCOUNTER → 2025-10-15 12:07 | Outpatient (BNVA) | payer OTHER, SELFPAY | PROVIDERS: PCP Nurse Practitioner; Visit Provider Nurse Practitioner | DX: E11.65 Type 2 diabetes mellitus with hyperglycemia (principal) | CPT/HCPCS: 80053; 83036 ==